=== PATIENT | female | born 1995 | race Asian ===

== ENCOUNTER 2019-03-17 07:04 | Day surgery (SDC) | payer OTHER ==
[~2019-03-17] VITALS: Ht 160 cm; Wt 47.2 kg
[2019-03-17 08:19] VITALS: BP 117/71
[2019-03-17 11:16] VITALS: BP 108/59
== END 2019-03-17 11:30 | disposition home or self-care (01) ==
LOC: GI 07:04 → OR 09:30 → GI 09:30
PROVIDERS: Internal Medicine
PROC: 0DJD8ZZ Inspection of Lower Intestinal Tract, Via Natural or Artificial Opening Endoscopic (ICD-10-PCS; principal; 2019-03-17 09:30)
PROC: 0DB58ZX Excision of Esophagus, Via Natural or Artificial Opening Endoscopic, Diagnostic (ICD-10-PCS; 2019-03-17 09:30)
PROC: 0DB68ZX Excision of Stomach, Via Natural or Artificial Opening Endoscopic, Diagnostic (ICD-10-PCS; 2019-03-17 09:30)
DX: K64.8 Other hemorrhoids (principal); K21.0 Gastro-esophageal reflux disease with esophagitis; K59.00 Constipation, unspecified; Z68.1 Body mass index [BMI] 19.9 or less, adult
CPT/HCPCS: 43235; 45378; J1200; J1610; J2250; J2310; J3010; J3490